=== PATIENT | male | born 1990 | race Caucasian/White ===

== ENCOUNTER 2022-11-13 16:35 | Emergency (ER) | payer OTHER, SELFPAY ==
[2022-11-13 16:49] VITALS: PULSE 79; RESP 16; TEMP 36.7; O2SAT 97; BMI 31.5
--- NOTE | 2022-11-13 17:04 | XRR_ITS ---
PROCEDURE INFORMATION: Exam: XR Left Wrist Exam date and time: 11/13/2022 5:12 PM Age: 32 years old Clinical indication: Injury or trauma; Other: Fb; Puncture; Wrist; Left; Additional info: Puncture wound to wrist with possible foreign body TECHNIQUE: Imaging protocol: Radiologic exam of the left wrist. Views: 3 or more views. COMPARISON: No relevant prior studies available. FINDINGS: Bones/joints: Negative for acute bony abnormality. Soft tissues: There is a 1.7 mm circumscribed metallic density in the ventral aspect of the distal forearm. The soft tissue around this area did are negative for focal abnormality. XR/XR wrist LT min 3V* [id number] IMPRESSION: 1. Tiny metallic foreign body in the ventral soft tissues of the distal forearm. 2. Otherwise No acute findings.
--- NOTE | 2022-11-13 17:05 | W.ED.EXTPRO ---
HPI - Extremity Problem General: Chief complaint: Extremity Injury, Upper Stated complaint: Left Wrist injury Time Seen by Provider: 11/13/22 16:58 History of Present Illness: Patient is a 32-year-old male who comes to the ED with left wrist injury. Injury occurred just prior to arrival. Patient says he was working with some metal and he he hit a piece with a hammer and it shot a piece of metal that hit the anterior aspect of his wrist. It caused a small puncture wound on wrist and he had some bleeding but he was able to control it and stopped bleeding before coming to the ED. He has some pain in his wrist and worsening pain with range of motion. He feels like there might be a piece of metal embedded under the skin. Denies any other injury or trauma. He rates his pain as mild and does not want any pain meds here in the ED. Patient states that he is currently on clindamycin for a wound on his left knee and states that he still has a little over 5 days left on his prescription. Patient is up-to-date on his tetanus states he got it a year ago. Associated symptoms: Deny chest pain, fever(s) or rash Review of Systems Const: Denies: fever(s), chills or fatigue Eyes: Denies: change in vision or eye discomfort ENMT: Denies: throat pain, odynophagia, nasal discharge or nasal congestion Card: Denies: chest pain, palpitations, edema, swelling of feet/ankles, dyspnea on exertion or orthopnea Resp: Denies: dyspnea, productive cough or non-productive cough GI: Denies: abdominal pain, nausea, vomiting, diarrhea, constipation or hematochezia : Denies: flank pain, difficulty urinating, dysuria or hematuria Musc: Reports: extremity pain (Left wrist); Denies: neck pain, back pain or extremity swelling Skin/Breast: Reports: new lesions (Puncture wound to left wrist); Denies: rash Neuro: Denies: headache(s), numbness in extremities or weakness in extremities [facility] ED PFSH: Medical History (Updated 11/13/22 @ 17:33 by TISHA Webb) No pertinent family history Surgical History (Updated 11/13/22 @ 17:09 by TISAH Webb) No pertinent past surgical history Physical Exam Const: COMMON NORMALS: patient oriented x3 HENMT: COMMON NORMALS: normocephalic HEAD & SCALP: normocephalic MOUTH: Normal oral and palatal mucosa present THROAT: posterior oropharynx normal and uvula midline Neck/C-Spine: COMMON NORMALS: supple GENERAL: Yes normal visual inspection Resp: COMMON NORMALS: normal respiratory effort, No retractions, No use of accessory muscles and clear to auscultation bilaterally AUSCULTATION: clear to auscultation bilaterally Cardio: COMMON NORMALS: regular rate, regular rhythm, S1 normal heart sound present, S2 normal heart sound present, No gallops present (Cardio), No clicks present (Cardio), No murmurs present (Cardio) and Peripheral pulses 2+ throughout RATE: regular rate RHYTHM: regular rhythm HEART SOUNDS: S1 normal heart sound present and S2 normal heart sound present PERIPHERAL PULSES: Peripheral pulses 2+ throughout GI: COMMON NORMALS: Normal to inspection, nondistended, normoactive bowel sounds present, Soft to palpation, non-tender and no masses PALPATION: Yes Soft to palpation : COMMON NORMALS: Yes no CVA tenderness BLADDER/KIDNEY EXAM: Yes no CVA tenderness Back/Pelvis: COMMON NORMALS: no CVA tenderness Extremity: NARRATIVE EXTREMITY EXAM: Left wrist?anterior/palmar side of wrist?small puncture wound noted with no active bleeding. There is some mild ecchymosis around puncture wound. He has some tenderness to palpation over the puncture wound on wrist. Full range of motion but endorses some pain with movement. No signs of any infection noted. Neurovascular intact distally. GENERAL: Yes normal exam except as noted Neuro: COMMON NORMALS: patient oriented x3 GAIT: Yes Normal gait present Skin: GENERAL SKIN EXAM: dry skin Course Vital Signs: Vital signs: Vital Signs Temperature 98.0 F 11/13/22 16:49 Pulse Rate 79 11/13/22 16:49 Respiratory Rate 16 11/13/22 16:49 Pulse Oximetry 97 11/13/22 16:49 Oxygen Delivery Me thod Room Air 11/13/22 16:49 MDM - Extremity (Nontraumatic) Medical Decision Making Patient is a 32-year-old male who comes to the ED with left wrist injury. Injury occurred just prior to arrival. Patient says he was working with some metal and he he hit a piece with a hammer and it shot a piece of metal that hit the anterior aspect of his wrist. It caused a small puncture wound on wrist and he had some bleeding but he was able to control it and stopped bleeding before coming to the ED. He has some pain in his wrist and worsening pain with range of motion. He feels like there might be a piece of metal embedded under the skin. Denies any other injury or trauma. He rates his pain as mild and does not want any pain meds here in the ED. Patient states that he is currently on clindamycin for a wound on his left knee and states that he still has a little over 5 days left on his prescription. Patient is up-to-date on his tetanus states he got it a year ago. Left wrist?anterior/palmar side of wrist?small puncture wound noted with no active bleeding. There is some mild ecchymosis around puncture wound. He has some tenderness to palpation over the puncture wound on wrist. Full range of motion but endorses some pain with movement. No signs of any infection noted. Neurovascular intact distally. Vital stable. X-ray of left wrist shows no acute fractures, but it does note a tiny metallic foreign body in the ventral soft tissue of the distal forearm. I placed order with case management for patient be referred to Ortho for follow-up on soft tissue foreign body in left wrist. He was stable for discharge home and I told him to continue taking his previously prescribed antibiotic till prescriptions finished. Return to ED precautions given. Patient understood agree with plan. Lab Data Radiology Impressions Wrist X-Ray 11/13/22 17:04 IMPRESSION: 1. Tiny metallic foreign body in the ventral soft tissues of the distal forearm. 2. Otherwise No acute findings. Discharge Plan Discharge Patient Disposition: Home Clinical Impression: Metal foreign body in wrist Condition: Stable Discharge Orders: Discharge ED (Routine); Ordered 11/13/22 Ordered By: Navdeep Cordova Referrals: Kandy Alfaro MD [Primary Care Provider] - Discharge Diet: Regular Discharge Activity: Increase activity as tolerated Activity Restrictions/Additional Instructions: Follow-up with medical provider as directed. Case management should be counting in the next several days to set up an appointment with Ortho for follow-up on metal foreign body in wrist. Take medications as prescribed. Return to the ER or your medical provider if condition worsens. Please read and understand discharge instructions. Thank you for choosing [facility] for your healthcare needs today. Please realize this is an emergency room and that we are providing you with a medical screening exam and this may not be complete and all inclusive of all the testing and or work up that you may need to determine your ailment or severity of your illness. It is very important that you follow up as instructed or that you return to the Emergency Department should you have concerns or if your condition changes or worsens in any way. Coding Level of Care Code ED Team [employer] for Jadiel Chicas
[2022-11-13 17:42] VITALS: BP 132/72; PULSE 71; RESP 14; O2SAT 99
--- NOTE | 2022-11-15 08:39 | DCPLANNER ---
Addendum entered by Rowan Torres 12/10/22 10:08: Patient had a follow appointment scheduled with ortho - patient did attend appointment. Addendum entered by Rowan Torres 11/17/22 09:13: Patient has a follow up appointment scheduled for Wednesday, November 23, 2022 at 3:30 with Dino Tavarez at ortho. Original Note: store loss prevention manager had message to schedule a follow up appointment for patient with ortho. store loss prevention manager sent patients to the front office staff at ortho. Patients information will be printed and reviewed. Clinic will call patient with appointment information.
== END 2022-11-13 17:42 | disposition home or self-care (01) ==
PROVIDERS: Emergency Provider Physician Assistant; PCP Family Medicine
DX: S61.542A Puncture wound with foreign body of left wrist, initial encounter (principal); W26.8XXA Contact with other sharp object(s), not elsewhere classified, initial encounter
CPT/HCPCS: 73110; 99283

== ENCOUNTER → 2022-11-23 14:42 | Outpatient (BNVA) | payer OTHER, SELFPAY | PROVIDERS: PCP Family Medicine; Referring Provider Physician Assistant; Visit Provider Physician Assistant | DX: S60.852A Superficial foreign body of left wrist, initial encounter (principal); S69.92XA Unspecified injury of left wrist, hand and finger(s), initial encounter; X58.XXXA Exposure to other specified factors, initial encounter | CPT/HCPCS: 73110; 99203 ==

== ENCOUNTER → 2022-12-14 14:38 | Outpatient (BNVA) | payer OTHER, SELFPAY | PROVIDERS: PCP Family Medicine; Visit Provider Podiatrist Foot & Ankle Surgery | DX: M72.2 Plantar fascial fibromatosis (principal); M79.671 Pain in right foot; M79.672 Pain in left foot | CPT/HCPCS: 73630; 99204 ==

== ENCOUNTER → 2023-02-11 08:04 | Outpatient (BNVA) | payer OTHER, SELFPAY | PROVIDERS: PCP Family Medicine; Visit Provider Otolaryngology | DX: H61.893 Other specified disorders of external ear, bilateral (principal); R04.0 Epistaxis; J34.2 Deviated nasal septum; J34.89 Other specified disorders of nose and nasal sinuses; H93.13 Tinnitus, bilateral; T16.2XXA Foreign body in left ear, initial encounter; X58.XXXA Exposure to other specified factors, initial encounter | CPT/HCPCS: 69200; 69205; 99204 ==

== ENCOUNTER → 2023-06-07 14:55 | Outpatient (BNVA) | payer OTHER, SELFPAY | PROVIDERS: PCP Family Medicine; Referring Provider Family Medicine; Visit Provider Internal Medicine Cardiovascular Disease | DX: R07.9 Chest pain, unspecified (principal); I49.1 Atrial premature depolarization; I49.3 Ventricular premature depolarization | CPT/HCPCS: 93242 ==

== ENCOUNTER → 2023-07-01 07:58 | Outpatient (BNVA) | payer OTHER, SELFPAY | PROVIDERS: PCP Family Medicine; Referring Provider Family Medicine; Visit Provider Surgery | DX: K21.9 Gastro-esophageal reflux disease without esophagitis (principal) | CPT/HCPCS: 99203 ==

== ENCOUNTER 2023-07-07 08:50 | Day surgery (SDC) | payer OTHER, SELFPAY ==
[2023-07-07 09:02] VITALS: BP 111/72; PULSE 60; RESP 18; TEMP 36.6; O2SAT 98; BMI 31.8
--- NOTE | 2023-07-07 09:10 | ANES.PREANE2 ---
Pre-Anesthetic Assessment Height/Weight: Height 1.78 m Weight 100.698 kg Temp Pulse Resp BP Pulse Ox O2 Del Method 97.9 F 60 18 111/72 98 Room Air 07/07/23 09:02 07/07/23 09:02 07/07/23 09:02 07/07/23 09:02 07/07/23 09:02 07/07/23 09:02 Preop Diagnosis: GERD Operation Date: 07/07/23 09:55 Proposed Procedures p [id number] egd K21.9(Not Applicable) - Catarino Hoover MD Was Beta [place] taken within 24 hours: N/A Was Clonidine taken within 24 hours: N/A Last intake: Intake Last Liquid Date 07/06/23 Last Liquid Time 19:00 Last Solid Date 07/06/23 Last Solid Time 19:00 Social Tobacco (chews) and No alcohol (glass or two daily) Exam alert and oriented x 3 Airway Submandibular: within normal limits Cervical ROM: within normal limits Mallampati: Class II Dentition: chipped (right incisor) History/ROS No significant history except as noted Pulmonary None reported CV/HEM Stable Angina (wore halter monitor 2-3 ago to rule out chest pain vs. reflux) None reported Hepatic None reported GI Gastroesophageal Reflux Disease Metabolic None reported Musc/skel None reported Neuropsych None reported Anesthetic Plan ASA status: 2 Anesthesia: MAC Risk of > 500 ml blood loss (7ml/kg in children): No Medications/Allergies Home Medications Medication Instructions Recorded Confirmed Last Taken Type CUSTOM co-poly insoles #1 ea 12/23/22 07/01/23 Unknown Rx fluticasone propionate 50 2 spray intranasal DAILY 02/11/23 07/05/23 1 Week Ago History mcg/actuation nasal ~06/28/23 spray,suspension omeprazole 40 mg capsule,delayed 40 mg PO DAILY 07/01/23 07/05/23 07/06/23 History release Allergies Allergy/AdvReac Type Severity Reaction Status Date / Time No Known Allergies Allergy Verified 07/05/23 09:34 [facility] Anesthesia Medical History No pertinent family history Surgical History No pertinent past surgical history Social History (Updated 07/01/23 @ 08:16 by DEBBY Pierce) Smoking and tobacco/nicotine status: current every day tobacco/nicotine user smokeless tobacco Smokeless tobacco user: chewing tobacco Alcohol intake: current Data Anesthesia Cardiac Studies: Holter Monitor 06/07/23
[2023-07-07] MEDS: sodium chloride 0.9% 1,000 ML 30 ML IV (09:12)
--- NOTE | 2023-07-07 09:25 | P.HPUD_ITS ---
Surgery/Procedure H&P Update DATE OF PROCEDURE: July 07, 2023 DATE H&P PERFORMED: 07/01/23 H&P UPDATE INFORMATION: I have reviewed H&P completed within last 30 days, I have examined patient prior to procedure, No changes to prior documentation and H&P is in [facility] [place] on date indicated PREOP DIAGNOSIS: GERD PLANNED PROCEDURE: Operation Date: 07/07/23 09:55 Proposed Procedures p 11383 egd K21.9(Not Applicable) - Catarino Hoover MD
[2023-07-07 09:46] VITALS: BP 107/70; PULSE 78; RESP 20; TEMP 36.4; O2SAT 94
[2023-07-07 09:50] VITALS: BP 118/74; PULSE 65; RESP 20; O2SAT 95
[2023-07-07 10:00] VITALS: BP 112/66; PULSE 65; RESP 20; O2SAT 97
--- NOTE | 2023-07-07 10:25 | ANE.PACU2 ---
Inpatient post-anesthesia follow up: Airway intact: Yes Vital signs: Temperature 97.6 F Pulse Rate 65 Respiratory Rate 20 Blood Pressure 112/66 Pulse Oximetry 97 Oxygen Delivery Me thod Room Air Oxygen Flow Rate Fraction of Inspir ed Oxygen Hydration adequate: Yes Nausea and vomiting: No Pain level: 1 Mental status: Baseline
== END 2023-07-07 10:24 | disposition home or self-care (01) ==
PROVIDERS: PCP Family Medicine; Visit Provider Surgery
PROC: 0DJ08ZZ Inspection of Upper Intestinal Tract, Via Natural or Artificial Opening Endoscopic (ICD-10-PCS; CPT 43235; principal; 2023-07-07 09:55)
DX: K21.00 Gastro-esophageal reflux disease with esophagitis, without bleeding (principal); K25.7 Chronic gastric ulcer without hemorrhage or perforation; K29.80 Duodenitis without bleeding; K29.70 Gastritis, unspecified, without bleeding; F17.220 Nicotine dependence, chewing tobacco, uncomplicated; K21.9 Gastro-esophageal reflux disease without esophagitis
CPT/HCPCS: 43239; 88305; J2704; J7030

== ENCOUNTER → 2023-07-26 09:13 | Outpatient (BNVA) | payer OTHER, SELFPAY | PROVIDERS: PCP Family Medicine; Visit Provider Surgery | DX: Z09 Encounter for follow-up examination after completed treatment for conditions other than malignant neoplasm (principal) | CPT/HCPCS: 99213 ==

== ENCOUNTER 2024-06-29 13:07 | Outpatient (CLI) | payer OTHER, SELFPAY ==
--- NOTE | 2024-06-29 13:45 | MR_ITS ---
WS: [id number] MRI LEFT KNEE NONCONTRAST TECHNIQUE: Axial PD, coronal PD fat sat, coronal PD, sagittal PD, and sagittal PD fat-sat images obta ined. CLINICAL INFORMATION: SWELLING AND PAIN PROGRESSIVELY WORSENING COMPARISON: None. FINDINGS: Distal quadriceps and patella tendons are intact. Mucoid degeneration involving the ACL which appears intact. PCL appears intact. Intraosseous ganglion cyst near the PCL insertion dorsal tibial plateau. Intraosseous cyst measures 7.4 x 7.1 mm. Fibular head appears normal. Medial and lateral collateral ligaments appear intact. Normal popliteus. Otherwise abnormal bone marrow signal in the femoral condyles and tibial plateau. Grade II chondroma lacia patella. Normal medial and lateral patellar retinaculum. Normal popliteal fossa. MR/MR knee LT wo con* [id number] IMPRESSION: 1. Mucoid degeneration of the ACL. PCL appears intact. 2. Medial and lateral meniscus appear intact. No acute appearing meniscal tear s. 3. Intraosseous ganglion cyst dorsal tibia near the PCL insertion described ab roberto. 4. Grade II chondromalacia patella. 5. No other acute findings. Outbridge grading: grade II: blister-like swelling/fraying of articular cartila ge extending to surface
--- NOTE | 2024-06-29 13:46 | MR_ITS ---
WS: [id number] MRI RIGHT KNEE NONCONTRAST TECHNIQUE: Axial PD, coronal PD fat sat, coronal PD, sagittal PD, and sagittal PD fat-sat images obta ined. CLINICAL INFORMATION: SWELLING AND PAIN PROGRESSIVELY WORSENING COMPARISON: None. FINDINGS: Distal quadriceps and patellar tendons are intact. Hypertrophic patella. Normal ACL and PCL. Suspecte d tiny horizontal tear involving the anterior horn lateral meniscus extending to the articular surfac e. Normal medial meniscus. Medial and lateral collateral ligaments appear normal. Normal popliteus. Grade II chondromalacia patella. Medial and lateral patellar retinaculum appear intact. Normal popli teal fossa. Normal bone marrow signal in the distal femoral condyles and tibial plateau. No other acu te findings. MR/MR knee RT wo con* [id number] IMPRESSION: 1. Normal ACL and PCL. 2. Suspected tiny horizontal tear involving the anterior horn lateral meniscus extending to the articular surface. Normal medial meniscus. 3. Grade II chondromalacia patella. No subchondral edema. 4. Medial and lateral collateral ligaments appear intact. No other acute findi ngs. Outbridge grading: grade II: blister-like swelling/fraying of articular cartila ge extending to surface
== END 2024-06-29 13:08 | disposition home or self-care (01) ==
LOC: RAD 13:09
PROVIDERS: PCP Family Medicine; Visit Provider Family Medicine
DX: M22.41 Chondromalacia patellae, right knee (principal); M22.42 Chondromalacia patellae, left knee; M67.462 Ganglion, left knee; R93.6 Abnormal findings on diagnostic imaging of limbs
CPT/HCPCS: 73721

== ENCOUNTER → 2024-09-10 15:17 | Outpatient (BNVA) | payer OTHER, SELFPAY | PROVIDERS: PCP Family Medicine; Visit Provider Specialist | DX: M17.0 Bilateral primary osteoarthritis of knee (principal) | CPT/HCPCS: 20610; 73560; 73565; 99204; J7326 ==

== ENCOUNTER 2025-02-14 14:56 | Outpatient (CLI) | payer OTHER, SELFPAY | END 2025-02-14 14:57 | disposition home or self-care (01) | LOC: SLEEP 14:59 | PROVIDERS: PCP Family Medicine; Visit Provider Internal Medicine Pulmonary Disease | DX: R53.83 Other fatigue (principal); G47.00 Insomnia, unspecified | CPT/HCPCS: G0399 ==

== ENCOUNTER → 2025-03-25 15:35 | Outpatient (BNVA) | payer OTHER, SELFPAY | PROVIDERS: PCP Family Medicine; Visit Provider Specialist | DX: M17.11 Unilateral primary osteoarthritis, right knee (principal); M17.12 Unilateral primary osteoarthritis, left knee | CPT/HCPCS: 20610; 73560; 73565; 99213; J7326 ==

== ENCOUNTER 2025-03-29 09:25 | Emergency (ER) | payer OTHER, SELFPAY ==
[2025-03-29 09:41] VITALS: BP 133/76; PULSE 95; RESP 17; TEMP 36.9; O2SAT 100; BMI 31.8
--- NOTE | 2025-03-29 09:42 | W.ED.SKABFB ---
Documented by User: TISHA Gandara 03/29/25 13:29 HPI - Skin/Abscess/Foreign Bdy General: Chief complaint: Skin/Abscess/Foreign Body Stated complaint: Bump on butox near the crease Time Seen by Provider: 03/29/25 09:37 Source: patient Mode of arrival: ambulatory Limitations: no limitations History of Present Illness: Patient is a 34-year-old male presents to ED today with a complaint of what sounds to be an anorectal abscess. Patient states he began noticing pain around his anus several days ago. He is having painful defecation. He feels like when he touches the area, he immediately begins feeling sick with nausea and cold chills. He has not noticed any drainage. He has never had a similar abscess before. No documented fevers. 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 MD complaint: abscess/boil Onset (ago): day(s) Tetanus up to date: yes Location: buttocks Severity: moderate Pain Consistency: constant Relieving factors: none Exacerbating factors: other (defecation) Context: none Associated symptoms: Reports chills; Deny fever(s) Treatments prior to arrival: none Related Data Home Medications ?Medication ?Instructions ?Recorded ?Confirmed allopurinol 300 mg tablet 300 mg PO DAILY 03/29/25 03/29/25 clindamycin HCl 300 mg capsule 300 mg PO Q6H 10d 03/29/25 03/29/25 meloxicam 15 mg tablet 15 mg PO DAILY 03/29/25 03/29/25 pantoprazole 40 mg tablet,delayed 40 mg PO DAILY 03/29/25 03/29/25 release Previous Rx's ?Medication ?Instructions ?Recorded CUSTOM co-poly insoles #1 ea 12/23/22 Allergies Allergy/AdvReac Type Severity Reaction Status Date / Time No Known Allergies Allergy Verified 03/25/25 07:50 Review of Systems Const: Reports: chills; Denies: fever(s), body aches, fatigue or malaise Card: Denies: chest pain Resp: Denies: dyspnea GI: Reports: rectal pain and rectal swelling; Denies: abdominal pain, hematochezia or melena : Denies: flank pain or dysuria Musc: Denies: back pain Skin/Breast: Reports: other (rectal abscess) Neuro: Denies: headache(s), numbness in extremities, weakness in extremities or sensory changes PFSH ED PFSH: Medical History No pertinent family history Surgical History No pertinent past surgical history Social History Smoking and tobacco/nicotine status: unknown if used tobacco/nicotine Alcohol intake: current Physical Exam Const: COMMON NORMALS: no acute distress, average body habitus, no limitations, healthy appearing, alert and well nourished Resp: COMMON NORMALS: normal respiratory effort and clear to auscultation bilaterally AUSCULTATION: clear to auscultation bilaterally Cardio: COMMON NORMALS: regular rate and regular rhythm RATE: regular rate RHYTHM: regular rhythm GI: COMMON NORMALS: Normal to inspection, nondistended, normoactive bowel sounds present, Soft to palpation, non-tender, No hepatosplenomegaly present and no masses INSPECTION: Yes normal to inspection PALPATION: Yes Soft to palpation and Yes No hepatosplenomegaly present RECTAL EXAM: Yes tenderness and Yes other (perirectal abscess 4-5 o'clock position/indurated with area of fluctuance) Neuro: SENSORIUM/ORIENTATION: Yes alert Skin: NARRATIVE SKIN EXAM: see above Course Consultations: Consultation #1: Dr. Santos-Alex[facility] general surgery-feels patient will need colorectal surgery Consultation #2: [facility]-no beds available Consultation #3: [facility]?Dr. Cristina-colorectal surgery-recommending discharge and POV transfer straight to their outpatient surgery center where he will drain abscess Vital Signs: Vital signs: Vital Signs Temperature 98.4 F 03/29/25 09:41 Pulse Rate 106 H 03/29/25 13:16 Respiratory Rate 21 H 03/29/25 12:34 Blood Pressure 113/62 03/29/25 13:16 Pulse Oximetry 99 03/29/25 13:16 Oxygen Delivery Me thod Room Air 03/29/25 09:41 MDM - Skin/Abscess/Foreign Bdy Medicial Decision Making Patient is a nice 34-year-old male here for rectal pain, painful defecation, and chills over the past several days. CT scan showing an intersphincteric perirectal abscess. We do not have any general surgery coverage today. I spoke to colorectal specialist Dr. Cristina at [facility] and he will drain abscess as an outpatient today. Patient was given clear instructions on directions to their outpatient surgery center and importance on staying NPO. He was given a dose of IV Zosyn prior to discharge. Medical Records I reviewed the patient's medical records. Lab Data I reviewed the patient's lab results. 03/29/25 10:54 03/29/25 10:[address] 03/29/25 09:49 IMPRESSION: 1. Small perianal fluid collection/abscess at the 7 o'clock position described above. Laboratory Results WBC 13.07 10^3/uL (3.29-11.43) H 03/29/25 10:54 RBC 4.63 10^6/uL (3.85-5.65) 03/29/25 10:54 Hgb 14.60 g/dL (11.27-16.99) 03/29/25 10:54 Hct 43.3 % (37-53) 03/29/25 10:54 MCV 93.5 fl (82-101) 03/29/25 10:54 MCH 31.5 pg (27-33) 03/29/25 10:54 MCHC 33.7 g/dL (30-55) 03/29/25 10:54 RDW 11.8 % (12.1-15.1) L 03/29/25 10:54 Plt Count 243 10^3/cmm (157-399) 03/29/25 10:54 MPV 9.2 fL (7.4-10.4) 03/29/25 10:54 Neut % (Auto) 81.4 % 03/29/25 10:54 Lymph % (Auto) 8.1 % 03/29/25 10:54 Austin % (Auto) 8.8 % 03/29/25 10:54 Eos % (Auto) 0.9 % 03/29/25 10:54 Baso % (Auto) 0.3 % 03/29/25 10:54 Neut # (Auto) 10.64 10^3/uL (1.8-7.7) H 03/29/25 10:54 Lymph # (Auto) 1.1 10^3/uL (0.8-4.8) 03/29/25 10:54 Austin # (Auto) 1.2 10^3/uL (0.2-0.9) H 03/29/25 10:54 Eos # (Auto) 0.1 10^3/uL (0.0-0.8) 03/29/25 10:54 Baso # (Auto) 0.0 10^3/uL (0.0-0.1) 03/29/25 10:54 Nucleated RBC % (auto) 0 % 03/29/25 10:54 Nucleated RBCs # 0.0 /100WBC 03/29/25 10:54 Sodium 135 mmol/L (136-145) L 03/29/25 10:54 Potassium 4.6 mmol/L (3.5-5.1) 03/29/25 10:54 Chloride 99 mmol/L (98-107) 03/29/25 10:54 Carbon Dioxide 27 mmol/L (22-29) 03/29/25 10:54 Anion Gap 13.6 (5-19) 03/29/25 10:54 BUN 14 mg/dL (6-20) 03/29/25 10:54 Creatinine 0.9 mg/dL (0.7-1.2) 03/29/25 10:54 GFR Calculation 95.5 mL/min (90-130) 03/29/25 10:54 Glucose 97 mg/dL (65-115) 03/29/25 10:54 Calculated Osmolality 280 mOsm/kg (285-295) L 03/29/25 10:54 Calcium 9.2 mg/dL (8.5-10.5) 03/29/25 10:54 Total Bilirubin 0.7 mg/dL (0.15-1.2) 03/29/25 10:54 AST 13 U/L (0-40) 03/29/25 10:54 ALT 19 U/L (0-41) 03/29/25 10:54 Alkaline Phosphatase 77 U/L (40-130) 03/29/25 10:54 C-Reactive Protein 95.0 mg/L (0.0-4.9) H 03/29/25 10:54 Total Protein 7.0 g/dL (6.6-8.7) 03/29/25 10:54 Albumin 4.2 g/dL (3.5-5.2) 03/29/25 10:54 Globulin 2.8 g/dL (1.3-4.6) 03/29/25 10:54 All radiology interpretation(s) finalized by discharge Discharge Plan Discharge Patient Disposition: Home Clinical Impression: Perirectal abscess Condition: Stable Prescriptions: No Action (DME) CUSTOM co-poly insoles See Rx Instructions .Route .MEDSUPPLY Qty: 1 0RF Rx Instructions: As directed by [facility] clindamycin HCl 300 mg capsule 300 mg PO Q6H meloxicam 15 mg tablet 15 mg PO DAILY allopurinol 300 mg tablet 300 mg PO DAILY pantoprazole 40 mg tablet,delayed release (DR/EC) 40 mg PO DAILY Discharge Orders: Discharge ED (Routine); Ordered 03/29/25 Ordered By: Kristen Alonso Referrals: Kandy Alfaro MD [Primary Care Provider, Family Practice] Patient Instructions: Patient Portal & Gris Instructions Activity Restrictions/Additional Instructions: As we discussed, you have strict instructions to go straight to the outpatient [facility] surgery center in [place] for surgery by Dr. Cristina today. DO NOT EAT OR DRINK ANYTHING. Go straight there without delays as they will be expecting you. We will give you address/instructions/phone number prior to discharge. Print Language: Beninese Coding Level of Care Code ED Tankroom Worker for Chg Fwd Documented by User: Suzie Leos MD 03/29/25 13:48 HPI - Skin/Abscess/Foreign Bdy General: Chief complaint: Skin/Abscess/Foreign Body Stated complaint: Bump on butox near the crease Time Seen by Provider: 03/29/25 09:37 Related Data Home Medications ?Medication ?Instructions ?Recorded ?Confirmed allopurinol 300 mg tablet 300 mg PO DAILY 03/29/25 03/29/25 clindamycin HCl 300 mg capsule 300 mg PO Q6H 10d 03/29/25 03/29/25 meloxicam 15 mg tablet 15 mg PO DAILY 03/29/25 03/29/25 pantoprazole 40 mg tablet,delayed 40 mg PO DAILY 03/29/25 03/29/25 release Previous Rx's ?Medication ?Instructions ?Recorded CUSTOM co-poly insoles #1 ea 12/23/22 Allergies Allergy/AdvReac Type Severity Reaction Status Date / Time No Known Allergies Allergy Verified 03/25/25 07:50 PFSH ED PFSH: Medical History No pertinent family history Surgical History No pertinent past surgical history Social History Smoking and tobacco/nicotine status: unknown if used tobacco/nicotine Alcohol intake: current Course Vital Signs: Vital signs: Vital Signs Temperature 98.4 F 03/29/25 09:41 Pulse Rate 106 H 03/29/25 13:16 Respiratory Rate 21 H 03/29/25 12:34 Blood Pressure 113/62 03/29/25 13:16 Pulse Oximetry 99 03/29/25 13:16 Oxygen Delivery Me thod Room Air 03/29/25 09:41 MDM - Skin/Abscess/Foreign Bdy Medicial Decision Making Patient is a nice 34-year-old male here for rectal pain, painful defecation, and chills over the past several days. CT scan showing an intersphincteric perirectal abscess. We do not have any general surgery coverage today. I spoke to colorectal specialist Dr. Cristina at [facility] and he will drain abscess as an outpatient today. Patient was given clear instructions on directions to their outpatient surgery center and importance on staying NPO. He was given a dose of IV Zosyn prior to discharge. I saw patient with above midlevel agree with her history and physical CT did show perianal abscess on elevated white count. Patient had to be transferred to [facility] due to not having any surgery availability. Lab Data 03/29/25 10:54 03/29/25 10:[address] 03/29/25 09:49 IMPRESSION: 1. Small perianal fluid collection/abscess at the 7 o'clock position described above. Laboratory Results WBC 13.07 10^3/uL (3.29-11.43) H 03/29/25 10:54 RBC 4.63 10^6/uL (3.85-5.65) 03/29/25 10:54 Hgb 14.60 g/dL (11.27-16.99) 03/29/25 10:54 Hct 43.3 % (37-53) 03/29/25 10:54 MCV 93.5 fl (82-101) 03/29/25 10:54 MCH 31.5 pg (27-33) 03/29/25 10:54 MCHC 33.7 g/dL (30-55) 03/29/25 10:54 RDW 11.8 % (12.1-15.1) L 03/29/25 10:54 Plt Count 243 10^3/cmm (157-399) 03/29/25 10:54 MPV 9.2 fL (7.4-10.4) 03/29/25 10:54 Neut % (Auto) 81.4 % 03/29/25 10:54 Lymph % (Auto) 8.1 % 03/29/25 10:54 Austin % (Auto) 8.8 % 03/29/25 10:54 Eos % (Auto) 0.9 % 03/29/25 10:54 Baso % (Auto) 0.3 % 03/29/25 10:54 Neut # (Auto) 10.64 10^3/uL (1.8-7.7) H 03/29/25 10:54 Lymph # (Auto) 1.1 10^3/uL (0.8-4.8) 03/29/25 10:54 [place] # (Auto) 1.2 10^3/uL (0.2-0.9) H 03/29/25 10:54 Eos # (Auto) 0.1 10^3/uL (0.0-0.8) 03/29/25 10:54 Baso # (Auto) 0.0 10^3/uL (0.0-0.1) 03/29/25 10:54 Nucleated RBC % (auto) 0 % 03/29/25 10:54 Nucleated RBCs # 0.0 /100WBC 03/29/25 10:54 Sodium 135 mmol/L (136-145) L 03/29/25 10:54 Potassium 4.6 mmol/L (3.5-5.1) 03/29/25 10:54 Chloride 99 mmol/L (98-107) 03/29/25 10:54 Carbon Dioxide 27 mmol/L (22-29) 03/29/25 10:54 Anion Gap 13.6 (5-19) 03/29/25 10:54 BUN 14 mg/dL (6-20) 03/29/25 10:54 Creatinine 0.9 mg/dL (0.7-1.2) 03/29/25 10:54 GFR Calculation 95.5 mL/min (90-130) 03/29/25 10:54 Glucose 97 mg/dL (65-115) 03/29/25 10:54 Calculated Osmolality 280 mOsm/kg (285-295) L 03/29/25 10:54 Calcium 9.2 mg/dL (8.5-10.5) 03/29/25 10:54 Total Bilirubin 0.7 mg/dL (0.15-1.2) 03/29/25 10:54 AST 13 U/L (0-40) 03/29/25 10:54 ALT 19 U/L (0-41) 03/29/25 10:54 Alkaline Phosphatase 77 U/L (40-130) 03/29/25 10:54 C-Reactive Protein 95.0 mg/L (0.0-4.9) H 03/29/25 10:54 Total Protein 7.0 g/dL (6.6-8.7) 03/29/25 10:54 Albumin 4.2 g/dL (3.5-5.2) 03/29/25 10:54 Globulin 2.8 g/dL (1.3-4.6) 03/29/25 10:54 Discharge Plan Discharge Patient Disposition: Home Clinical Impression: Perirectal abscess Condition: Stable Prescriptions: No Action (DME) CUSTOM co-poly insoles See Rx Instructions .Route .MEDSUPPLY Qty: 1 0RF Rx Instructions: As directed by [facility] clindamycin HCl 300 mg capsule 300 mg PO Q6H meloxicam 15 mg tablet 15 mg PO DAILY allopurinol 300 mg tablet 300 mg PO DAILY pantoprazole 40 mg tablet,delayed release (DR/EC) 40 mg PO DAILY Discharge Orders: Discharge ED (Routine); Ordered 10/24/25 Ordered By: Kristen Alonso Referrals: Kandy Alfaro MD [Primary Care Provider, Family Practice] Patient Instructions: Patient Portal & Gris Instructions Activity Restrictions/Additional Instructions: As we discussed, you have strict instructions to go straight to the outpatient [facility] surgery center in [place] for surgery by Dr. Cristina today. DO NOT EAT OR DRINK ANYTHING. Go straight there without delays as they will be expecting you. We will give you address/instructions/phone number prior to discharge. Print Language: Beninese Coding Level of Care Code ED Tankroom Worker for Jadiel Chicas
--- NOTE | 2025-03-29 09:49 | CT_ITS ---
WS: [id number] CT pelvis TECHNIQUE: Contrast-enhanced CT of the pelvis with coronal and sagittal reformatted images. CLINICAL INFORMATION: anorectal abscess COMPARISON: None. DLP: 593.[address] scans at [facility] use at least one of these dose optimization techniques: automated exposure control; mA and/or kV adjustment per patient size (includes targeted exams where dose is matched to clinical indication); or iterative reconstruction. FINDINGS: Low-attenuation fluid collection in the intersphincteric space at the 7 o'clock position abutting the internal sphincter. This appears to extend across the external sphincter at the 6 o'clock position. Associated perianal inflammatory stranding and thickening eccentric to the RIGHT. Small fluid collection/abscess measures approximately 1.5 x 2.2 x 1.0 cm. Additional smaller low-attenuation pocket along the LEFT external sphincter at the 3 o'clock position measuring 10 mm suspicious for developing but incompletely liquefied abscess. A few sigmoid diverticuli. Tiny LEFT renal cyst. Normal appendix in the RIGHT lower quadrant. No inguinal lymphadenopathy. CT/CT pelvis w con* [id number] IMPRESSION: 1. Small perianal fluid collection/abscess at the 7 o'clock position described above.
[2025-03-29] MEDS: iohexol 350 mg/mL 500 mL Btl (per mL) IV (10:27)
[2025-03-29 10:59] LABS: Hematocrit 43.3 % (37-53); Hemoglobin 14.60 g/dL (11.27-16.99); Mean Corpuscular HGB Conc 33.7 g/dL (30-55); Mean Corpuscular Hemoglobin 31.5 pg (27-33); Mean Corpuscular Volume 93.5 fl (82-101); Nucleated Red Blood Cells % 0 %; Platelet Count 243 10^3/cmm (157-399); Red Blood Count 4.63 10^6/uL (3.85-5.65); White Blood Count 13.07 10^3/uL (3.29-11.43)
[2025-03-29 11:15] LABS: Alanine Aminotransferase 19 U/L (0-41); Albumin Level 4.2 g/dL (3.5-5.2); Alkaline Phosphatase 77 U/L (40-130); Anion Gap 13.6 (5-19); Aspartate Amino Transferase 13 U/L (0-40); Blood Urea Nitrogen 14 mg/dL (6-20); Calcium 9.2 mg/dL (8.5-10.5); Carbon Dioxide 27 mmol/L (22-29); Chloride 99 mmol/L (98-107); Creatinine Clr Calc Pharmacy 134.9419; Globulin 2.8 g/dL (1.3-4.6); Glucose 97 mg/dL (65-115); Osmolality Calculated 280 mOsm/kg (285-295); Potassium 4.6 mmol/L (3.5-5.1); Sodium 135 mmol/L (136-145); Total Protein 7.0 g/dL (6.6-8.7)
--- NOTE | 2025-03-29 11:44 | PC.PHAR ---
No Zithromax found. Verified with [facility]-new rx is Clindamycin 300mg.
[2025-03-29 12:34] VITALS: RESP 21; O2SAT 100
[2025-03-29] MEDS: ondansetron 2 mg/ML SDV 2 mL 4 MG IVP (12:34)
[2025-03-29] MEDS: morphine 4 mg/mL SDV 1 mL IVP (12:34)
[2025-03-29] MEDS: piperacillin-tazobactam 3.375 GM in sodium chloride 0.9% (plus) 50 ML IV (12:34)
[2025-03-29 12:35] VITALS: BP 111/64; PULSE 90; O2SAT 100
[2025-03-29 13:16] VITALS: BP 113/62; PULSE 106; O2SAT 99
== END 2025-03-29 13:17 | disposition home or self-care (01) ==
PROVIDERS: Emergency Provider Physician Assistant; PCP Family Medicine
DX: K61.1 Rectal abscess (principal)
CPT/HCPCS: 36415; 72193; 80053; 85025; 86140; 96365; 96375; 99285; J2270; J2405; J2543; J9999